=== PATIENT | female | born 1990 | race Two or more races ===

== ENCOUNTER 2017-03-16 14:18 | Emergency (ER) | payer MEDICAID ==
[~2017-03-16] VITALS: Ht 165.1 cm; Wt 108.9 kg
[2017-03-16 14:27] VITALS: BP 163/82
[2017-03-16] MEDS ORDERED: KETOROLAC TROMETH 60MG/2ML VIAL IM ONE (15:00)
== END 2017-03-16 15:29 | disposition home or self-care (01) ==
LOC: ER 14:18
DX: F41.1 Generalized anxiety disorder (principal); G43.909 Migraine, unspecified, not intractable, without status migrainosus; Z87.440 Personal history of urinary (tract) infections; F32.9 Major depressive disorder, single episode, unspecified
CPT/HCPCS: 96372; 99284; J1885

== ENCOUNTER 2017-03-17 06:11 | Emergency (ER) | payer MEDICAID ==
[~2017-03-17] VITALS: Ht 162.6 cm; Wt 108.9 kg
[2017-03-17 06:55] VITALS: BP 126/65
== END 2017-03-17 06:53 | disposition home or self-care (01) ==
LOC: ER 06:11
DX: J02.9 Acute pharyngitis, unspecified (principal); Z90.89 Acquired absence of other organs

== ENCOUNTER 2017-09-17 14:41 | Emergency (ER) | payer MEDICAID ==
[~2017-09-17] VITALS: Ht 165.1 cm; Wt 108.9 kg
[2017-09-17 14:50] VITALS: BP 139/86
== END 2017-09-17 20:18 | disposition left against medical advice (07) ==
LOC: ER 14:49
DX: R51 Headache (principal); Z53.21 Procedure and treatment not carried out due to patient leaving prior to being seen by health care provider

== ENCOUNTER 2018-06-23 11:58 | Emergency (ER) | payer MEDICAID ==
[~2018-06-23] VITALS: Ht 165.1 cm; Wt 90.7 kg
[2018-06-23 12:03] VITALS: BP 135/78
[2018-06-23] MEDS ORDERED: KETOROLAC TROMETH 60MG/2ML VIAL IM ONE (13:15)
[2018-06-23] MEDS ORDERED: PROMETHAZINE HCL 25 MG/ML 1ML IM ONE (13:15)
[2018-06-23] MEDS ORDERED: cefTRIAXone 1GM/50ML D5W 50 ML IV ONE (14:16)
== END 2018-06-23 13:56 | disposition home or self-care (01) ==
LOC: ER 11:58
DX: G43.909 Migraine, unspecified, not intractable, without status migrainosus (principal); J01.00 Acute maxillary sinusitis, unspecified
CPT/HCPCS: 81025; 96372; 99284; J0696; J1885; J2550

== ENCOUNTER 2018-07-06 17:44 | Emergency (ER) | payer MEDICAID ==
[~2018-07-06] VITALS: Ht 165.1 cm; Wt 90.7 kg
[2018-07-06] MEDS ORDERED: KETOROLAC TROMETH 60MG/2ML VIAL IM ONE (19:00)
[2018-07-06] MEDS ORDERED: BACLOFEN 10 MG TAB PO ONE (19:00)
[2018-07-06 19:35] VITALS: BP 102/54
== END 2018-07-06 19:40 | disposition home or self-care (01) ==
LOC: ER 17:44
DX: R51 Headache (principal); M62.838 Other muscle spasm; Z90.89 Acquired absence of other organs
CPT/HCPCS: 72040; 96372; 99284; J1885

== ENCOUNTER 2018-10-01 10:16 | Emergency (ER) | payer MEDICAID ==
[~2018-10-01] VITALS: Ht 165.1 cm; Wt 81.6 kg
[2018-10-01 12:50] VITALS: BP 117/64
[2018-10-01] MEDS ORDERED: KETOROLAC TROMETH 60MG/2ML VIAL IM ONE (13:00)
== END 2018-10-01 13:58 | disposition home or self-care (01) ==
LOC: ER 10:17
DX: G43.909 Migraine, unspecified, not intractable, without status migrainosus (principal); Z87.440 Personal history of urinary (tract) infections
CPT/HCPCS: 96372; 99283; J1885

== ENCOUNTER → 2024-03-28 | Outpatient (CLI) | payer MEDICAID | END | disposition home or self-care (01) | LOC: Rad HDHVI 15:55 | PROVIDERS: ATTEND Internal Medicine Cardiovascular Disease | DX: R00.2 Palpitations (principal) | CPT/HCPCS: 93306 ==

== ENCOUNTER → 2024-04-01 | Outpatient (CLI) | payer MEDICAID ==
[~2024-04-01] VITALS: Ht 167.6 cm; Wt 87.1 kg
== END | disposition home or self-care (01) ==
LOC: Rad HDHVI 14:33
PROVIDERS: ATTEND Internal Medicine Cardiovascular Disease
DX: R07.89 Other chest pain (principal); R00.2 Palpitations; R06.02 Shortness of breath; Z82.49 Family history of ischemic heart disease and other diseases of the circulatory system
CPT/HCPCS: 78452; 93017; 96374; A9500